=== PATIENT | male | born 1955 | race Caucasian/White ===

== ENCOUNTER 2022-12-18 08:39 | Emergency (ER) | payer MEDICARE ==
[~2022-12-18] VITALS: Ht 180.3 cm; Wt 109.1 kg
[2022-12-18 09:28] LABS: BASO # 0.02 K/mm3 (0.02-0.10); EOS # 0.13 K/mm3 (0.04-0.40); EOS % 1.4 % (0.0-4.0); HEMATOCRIT 43.5 % (42.0-52.0); HEMOGLOBIN 14.2 g/dL (13.5-18.0); LYMPH# 0.83 K/mm3 (1.50-4.00); MEAN CELL VOLUME 92 fl (78-100); MEAN CORPUSCULAR HEMOGLOBIN 30 pg (27-31); MEAN CORPUSCULAR HGB CONC 33 g/dL (33-37); MEAN PLATELET VOLUME 10.7 fl (7.4-10.4); MONO # 0.82 K/mm3 (0.20-0.80); NEU # 7.28 K/mm3 (1.40-6.50); PLATELET COUNT 161 K/mm3 (130-400); RED BLOOD COUNT 4.71 M/mm3 (4.20-5.60); RED CELL DISTRIBUTION WIDTH 12.7 % (11.5-14.5); WHITE BLOOD COUNT 9.1 K/mm3 (4.8-10.8)
[2022-12-18 09:37] LABS: SODIUM 137 mmol/L (136-145)
[2022-12-18 09:38] LABS: CALCIUM 9.5 mg/dL (8.3-10.5)
[2022-12-18 09:39] LABS: GLUCOSE 143 mg/dL (75-110); TOTAL PROTEIN 7.2 g/dL (6.2-8.1)
[2022-12-18 09:40] LABS: CARBON DIOXIDE 24 mmol/L (23-31)
[2022-12-18 09:41] LABS: TOTAL BILIRUBIN 0.9 mg/dL (0.2-1.2)
[2022-12-18 09:45] LABS: AST-SGOT 19 U/L (5-34)
[2022-12-18 09:46] LABS: ALT/SGPT 18 U/L (0-55)
[2022-12-18 09:54] LABS: TROPONIN-I < 0.030 ng/mL (<0.030)
[2022-12-18 10:02] LABS: D-DIMER 0.35 mg/L FEU (0.15-0.50)
[2022-12-18] MEDS ORDERED: ASPIRIN E.C. 8181 MG PO (10:24)
[2022-12-18] MEDS ORDERED: METOPROLOL SUCC25 M1 PO (10:25)
[2022-12-18] MEDS ORDERED: LISINOPRIL10 MG PO (10:25)
[2022-12-18] MEDS ORDERED: ROSUVASTATIN CA40 MG PO (10:26)
[2022-12-18] MEDS ORDERED: LEVOTHYROXINE125 MCG PO ×2 (10:26)
[2022-12-18] MEDS ORDERED: ISOSORBIDE30 MG PO (13:05)
[2022-12-18 13:10] VITALS: BP 110/70
== END 2022-12-18 13:11 | disposition home or self-care (01) ==
LOC: ED 08:39
PROVIDERS: Physician Assistant
DX: R07.89 Other chest pain (principal); Z98.61 Coronary angioplasty status